=== PATIENT | male | born 1970 | race African-American/Black ===

== ENCOUNTER 2019-11-29 16:02 | Emergency (ER) | payer MEDICAID ==
[~2019-11-29] VITALS: Ht 198.1 cm; Wt 131.8 kg
[2019-11-29 16:22] VITALS: Ht 198.1 cm; Wt 131.8 kg
[2019-11-29 16:56] LABS: BASOPHILS 0.3 % (0-2); EOSINOPHILS 2.8 % (0-7); HEMATOCRIT 46.2 % (42.0-54.0); HEMOGLOBIN 15.5 g/dL (13.5-17.5); IMMATURE GRANULOCYTES 0.3 % (0-5); LYMPHOCYTES 27.4 % (15-50); MCH 31.3 pg (26.0-34.0); MCHC 33.5 g/dL (31.0-37.0); MCV 93.1 fL (80.0-100.0); MEAN PLATELET VOLUME 10.2 fL (7.4-10.4); MONOCYTES 7.8 % (2-11); NEUTROPHILS 61.4 % (40-80); PLATELET COUNT 226 10x3/uL (130-400); RBC 4.96 10x6/uL (4.20-6.10); RDW 13.3 % (11.5-14.5); WBC 7.4 10x3/uL (4.8-10.8)
[2019-11-29 17:17] LABS: ALBUMIN 3.7 g/dL (3.4-5.0); ANION GAP 7.6 mmol/L (8-16); BILIRUBIN - TOTAL 0.71 mg/dL (0.2-1.3); CALCIUM 8.8 mg/dL (8.5-10.1); CARBON DIOXIDE 31.7 mmol/L (21.0-32.0); CREATININE - SERUM 1.5 mg/dL (0.6-1.3); POTASSIUM - SERUM 3.3 mmol/L (3.5-5.1)
[2019-11-29] MEDS ORDERED: CYCLOBENZAPRINE10 MG PO (17:48)
[2019-11-29] MEDS ORDERED: TORADOL10 MG PO (17:56)
[2019-11-29 18:40] VITALS: BP 176/92
== END 2019-11-29 18:20 | disposition home or self-care (01) ==
LOC: D.ER 16:02
PROVIDERS: Emergency Medicine
DX: M79.18 Myalgia, other site (principal); V89.2XXA Person injured in unspecified motor-vehicle accident, traffic, initial encounter; Y93.9 Activity, unspecified; Y92.9 Unspecified place or not applicable; Z86.73 Personal history of transient ischemic attack (TIA), and cerebral infarction without residual deficits; E11.9 Type 2 diabetes mellitus without complications; I10 Essential (primary) hypertension